=== PATIENT | male | born 1955 | race African-American/Black ===

== ENCOUNTER → 2021-12-24 | Day surgery (SDC) | payer MEDICARE ==
[~2021-12-24] MED LIST: BENICAR20 MG PO; CATAPRES-TTS 11 EACH TD; CLONIDINE HCL0.1 MG PO; DEXAMETHASONE PHOS 24 MG/ML 10ML VIAL IV ONE; DEXAMETHASONE SOD PHOS 10 MG/1 ML VIAL ONE; DEXAMETHASONE SOD PHOS INJ 4 MG/ML SDV ONE; EPHEDRINE SULFATE INJ 50 MG/ML VIAL ONE; FENTANYL CITRATE/PF 100MCG/2 ML INJ ONE; FLOMAX0.4 MG PO; LABETALOL HCL100 MG PO; NIFEDIPINE10 MG PO; NOVOLIN 70100 UNIT/3 SC; ONDANSETRON HCL INJ 2MG/ML 2ML 2 MG/ML VIAL ONE; PIOGLITAZONE HC45 MG PO; POVIDONE IODINE 0.05% 0.05 % ML PO ONE; PROPOFOL IV EMULSION 10 MG/ML 20 ML VIAL ONE; SEVOFLURANE INHAL SOLN 250 ML PEN BTL ONE
[2021-12-24 14:10] VITALS: BP 118/69
== END | disposition home or self-care (01) ==
LOC: OR 10:31
PROVIDERS: ATTEND Otolaryngology Otolaryngology/Facial Plastic Surgery
DX: H71.92 Unspecified cholesteatoma, left ear (principal); H66.93 Otitis media, unspecified, bilateral; H90.3 Sensorineural hearing loss, bilateral; H93.13 Tinnitus, bilateral; E78.5 Hyperlipidemia, unspecified; I34.1 Nonrheumatic mitral (valve) prolapse; I34.0 Nonrheumatic mitral (valve) insufficiency; I36.1 Nonrheumatic tricuspid (valve) insufficiency; D86.89 Sarcoidosis of other sites; E11.22 Type 2 diabetes mellitus with diabetic chronic kidney disease; I12.9 Hypertensive chronic kidney disease with stage 1 through stage 4 chronic kidney disease, or unspecified chronic kidney disease; N18.9 Chronic kidney disease, unspecified; H54.40 Blindness, one eye, unspecified eye; Z79.4 Long term (current) use of insulin; Z79.899 Other long term (current) drug therapy
CPT/HCPCS: 36415; 69222; 82948; 88304; J1100 ×2; J2405; J2704; J3010